=== PATIENT | female | born 1985 | race Caucasian/White ===

== ENCOUNTER 2016-12-22 09:24 | Day surgery (SDC) | payer OTHER ==
[~2016-12-22] VITALS: Ht 172.7 cm; Wt 75.3 kg
[2016-12-22] VITALS (10 sets, daily range): BP systolic 103–125; BP diastolic 69–81; PULSE 75–106; RESP 14–24; O2SAT 98–100
--- NOTE | 2016-12-22 06:48 | PCM.HPANE ---
Patient Data Surgeon Admitting Provider: Attending Provider:Eliel Craven MD Primary Care Physician:Omari Other Provider:Candie Doveingham Anesthesia Reason for Visit Missed Ab Ht/WT & BMI Height (Feet): 5 Height (Inches): 8 Weight (Kilograms): 72.54 Body Mass Index 24.00 Allergies Coded Allergies: Penicillins (Verified Allergy, Unknown, hives, 12/21/16) Past Anesthesia History Anesthesia History: Denies:: Abnormal Airway, Anesthesia Reactions, Difficult Intubation, Fam Anesthesia Reaction Diabetes History Hx Diabetes?: No MRSA MRSA: No Medications Hypertension Medication: No Home Meds Incl Beta Isabel: No Reported Medications Vits #90/Iron Fum/FA ( Formula Tablet)1 Each Tablet1 Each PO DAILY 12/21/16 History HEENT History: Denies:: Abnormal Airway Cataracts Difficult Intubation Dysphagia Glaucoma Hearing Problem Sinus Problem TMJ Cardiovascular History: Denies:: AICD Abdominal Aortic Aneurism Atrial Fibrillation Cardiac Surgery Chest Pain Congestive Heart Failure Coronary Artery Disease Edema Heart Murmur Hypertension Irregular Heartbeat Pacemaker Peripheral Vascular Hx of Respiratory Problem?: No Respiratory History: Denies:: Asthma COPD Emphysema Oxygen Administration Pneumonia Tuberculosis Use of C-PAP Machine Use of Inhalers / NEBS Hx Neurologic Problems?: No Neurological History: Denies:: Alzheimer's Disease CVA Dementia Dizziness Headaches Multiple Sclerosis Parkinson's Disease Seizures TIA Hx of GI Problems?: No Gastrointestinal History: Denies:: Cirrhosis Diverticulitis Gall Bladder Disease Gastroesphageal Reflux Gastrointestinal Bleeding Heartburn Hepatitis Hiatal Hernia Liver Disease Rectal Bleeding Hx of Problems?: No Genitourinary History: Denies:: Kidney Stones Urinary Tract Infection Female Hx: Denies:: Currently (missed ab current admission problem) Problems with Breasts? Skin History: Denies:: History Skin Disorders? Pressure Ulcers Hx Musculoskeletal Problems?: No Musculoskeletal History: Denies:: Back Injury Fibromyalgia Joint Replacement Musculoskeletal Trauma Myasthenia Gravis Osteoarthritis Systemic Lupus Hx of Psycho/Social Problems?: No Psycho Social History: Denies:: Anxiety Hx Depression Hx Surgeries?: Yes (oral surgery, arm re-location) Hx Any Other Health Problems?: Yes Other History: Denies:: Cancer Thyroid Disease History Blood Transfusions: Positive for:: Accept Blood Products? Denies:: Blood Transfusions Hx Diabetes: No Hx Alcohol Use: YesAlcoholic Drinks Per Day: one drink weeklyHx Substance Use : NoHave You Smoked inLast 12 mo: Yes (2 months ) Stop/Bang S-Snoring: Do You Snore Loudly: No T-Tired: feel tired, fatigued: No O-Obsered: Observed not breath: No P-Blood Pressure: treated: No B- Body Mass Index > 35 kg/m2: No A- Age over 50: No N- Neck Large Circumference: No G- Gender Male: No MERON Total Score: 0 MERON Risk Assessment: Low Risk, <3 Yes Risk Assessment Category Category 1A: Patient has history of documented sleep apnea, and HAS NOT received any narcotic, sedative or anesthesia administration during this stay. Category 1B: Patient has history of documented sleep apnea, and HAS received any narcotic , sedative or anesthesia administration during this stay Category 2: Patient has SUSPECTED Obstructive Sleep Apnea, and HAS received any narcotic , sedative or anesthesia administration during this stay. Category 3: Patient has SUSPECTED Obstructive Sleep Apnea and HAS NOT received narcotic, sedative or anesthesia administration during this stay. Category 4: Outpatient in Procedural Areas with known sleep apnea or who screen positive for High Risk via the STOP/BANG questionnaire. Exam Exam General Appearance: Alert, Oriented X3, Cooperative, No Acute Distress HEENT/AIRWAY: MP 2 Lungs: Clear to Auscultation, Normal Air Movement Heart: Exam Unremarkable, Regular Rate/Rhythm, No Murmurs/Rubs/Gallops Plan Impression Patient chart reviewed, patient interviewed and anesthestic plan with risks, benefits, and alternatives discussed, and informed consent obtained. ASA Physical Status: ASA2 Mod Systemic Disease Anesthetic Plan: GA Bene/Risks/Altern/Consents: Yes HP Complete Prior to Induction: Yes Daniel Rice MD Dec 22, 2016 06:48
--- NOTE | 2016-12-22 08:13 | HP PRE OP ---
[address] [address] PREOPERATIVE HISTORY AND PHYSICAL PATIENT: JENIFER ALMANZA : 1985 MR#: [id number] ADMIT: 12/22/2016 JOB ID: [id number] DATE OF ADMISSION: 12/22/2016 IDENTIFICATION: The patient is a 31-year-old, G1, P0, AB 0single woman. CHIEF COMPLAINT: First trimester missed . HISTORY OF PRESENT ILLNESS: This patient came to my office for care. Onset on December 20, 2016. By menstrual dating, she would have been at 9 and 1/7 weeks of gestation. However, ultrasound at that time demonstrated first trimester missed , with pole consistent with 8 and 2/7 weeks of gestation, no heartbeat. Formal ultrasound confirmed the missed . The patient was given options of observation to wait for a spontaneous miscarriage versus suction D and C procedure, understanding benefits and risks, pros and cons, and she definitively requested suction D and C. She has realized that this is considered an outpatient surgery although it could convert to a more major case including laparotomy, if some type of uterine perforation or otherwise heavy bleeding, for example. There can be infection, bleeding, anesthetic risks, cervical or uterine wall perforation, etc. On the other hand, typically this procedure is very brief and patient will return home and we anticipate that she will do well. All questions have been answered. No guarantees have been stated or implied, and the patient has signed informed consent for surgery. In summary, then, this patient will be admitted to [facility] on December 22, 2016 on which day she will undergo a suction D and C procedure. PHYSICAL EXAMINATION: Vital Signs: Height 68 inches, weight 166 pounds. Blood pressure 130/80. Neck: No thyromegaly. Lungs are clear to auscultation and percussion. Heart: Regular in rate and rhythm. Breasts: Tender, no concerning mass or skin changes. Abdomen; Nontender no mass. No surgical scarring. Pelvic examination: Vulva, vagina and cervix, no obvious epithelial abnormality. Uterus small, no obvious adnexal mass or tenderness. IMPRESSION: 1. First trimester missed , with patient request for suction dilation and curettage, scheduled for December 22, 2016. 2. Rhesus positive status. 3. Prior control pill, became while using, note an antibiotic administration recently. 4. Prior smoker, stopped with positive test, not planning to start again. 5. PENICILLIN allergy, reported hives as a baby, no difficulty breathing. (Patient reports that sulfa based antibiotics are well-tolerated). 6. Family history of hypertension (grandparents), diabetes (grandfather), heart disease (grandfather) and twins (maternal grandmother is a twin, paternal aunts are twins). PLAN: The patient will be admitted to [facility] on December 22, 2016 on which day she will undergo suction D and C procedure as therapy for first trimester missed .
[~2016-12-22 09:24] MED LIST: PREN-100 PO
[2016-12-22] MEDS ORDERED: Dexamethasone 4 mg/mL Inj ONE (09:25)
[2016-12-22] MEDS ORDERED: fentaNYL-PF 50 mCg/mL 2 mL Inj ONE (09:25)
[2016-12-22] MEDS ORDERED: Ondansetron 2 mg/mL 2 mL Inj ONE (09:25)
[2016-12-22] MEDS ORDERED: Propofol 10,000 mCg/mL 20 mL Inj ONE (09:25)
[2016-12-22] MEDS ORDERED: Lactated Ringer's 1,000 ML IV SCH ×2 (10:25→12:22)
[2016-12-22] MEDS ORDERED: Lactated Ringer's 1,000 ML IV ONE ×3 (11:13→13:01)
[2016-12-22] MEDS ORDERED: Lactated Ringer's 500 ML IV PRN (12:22)
[2016-12-22] MEDS ORDERED: Labetalol 5 mg/mL 4 mL Inj IV PRN (12:25)
[2016-12-22] MEDS ORDERED: fentaNYL-PF 50 mCg/mL 2 mL Inj IVPUSH PRN (12:25)
[2016-12-22] MEDS ORDERED: Ondansetron 2 mg/mL 2 mL Inj IVPUSH PRN ×2 (12:25→12:55)
[2016-12-22] MEDS ORDERED: Atropine 0.4 mg/mL Inj IVPUSH PRN (12:25)
[2016-12-22] MEDS ORDERED: HYDROmorphone 1 mg/mL Inj IVPUSH PRN ×2 (12:25→12:55)
[2016-12-22] MEDS ORDERED: EPHEDrine Sulfate 50 mg/mL Inj IVPUSH PRN (12:25)
[2016-12-22] MEDS ORDERED: MetoCLOpramide 5 mg/mL 2 mL Inj IVPUSH PRN ×2 (12:25→12:55)
[2016-12-22] MEDS ORDERED: Phenylephrine 10,000 mCg/mL Inj IVPUSH PRN (12:25)
[2016-12-22] MEDS ORDERED: Dexamethasone 4 mg/mL Inj IVPUSH PRN (12:25)
[2016-12-22] MEDS ORDERED: hydrALAZINE 20 mg/mL Inj IVPUSH PRN (12:25)
--- NOTE | 2016-12-22 13:05 | PCM.ANEP1 ---
Post Anesthesia Phase 1 PACU Phase 1 Assessment Vital Signs Vital Signs Date Time Temp Pulse Resp B/P Pulse Ox O2 Delivery O2 Flow Rate FiO2 12/22/16 13:00 100 14 120/79 100 Room Air 12/22/16 12:55 36.6 106 17 124/73 100 Simple Mask 7 12/22/16 09:50 37.0 85 18 124/81 99 Room Air Anesthetic Administered: GA Level of Alertness: Awake, talking CHAIDEZ's with Equal Strength: Yes Pain: No Nausea or Vomiting: No Oxygen Delivery: Simple Mask Lungs: Clear to Auscultation, Normal Air Movement Daniel Rice MD Dec 22, 2016 13:05
[2016-12-22] MEDS ORDERED: HYDROmorphone 0.5 mg/0.5 mL iSecure Syringe ONE (13:09)
--- NOTE | 2016-12-22 15:36 | PCM.ANEP2 ---
Post Anesthesia Evaluation ASA/CMS Post Anesthesia VS in Patient's Normal Range?: Yes Resp Stable; Airway Patent?: Yes CV Function & Hydration Stable: Yes Mental Status Recovered?: Yes Pain control Satisfactory?: Yes N/V Control Satisfactory?: Yes Daniel Rice MD Dec 22, 2016 15:35
--- NOTE | 2016-12-23 00:36 | OP ---
[address] [address] OPERATIVE REPORT PATIENT: JENIFER ALMANZA : 1985 MR#: [id number] ADMIT: 12/22/2016 JOB ID: [id number] DATE OF SURGERY: 12/22/2016 SURGEON: Eliel Craven MD. RECORDS MANAGEMENT TECHNICIAN: None. ANESTHESIA: General. PREOPERATIVE DIAGNOSIS(ES): First trimester missed . POSTOPERATIVE DIAGNOSIS(ES): First trimester missed . PROCEDURES PERFORMED: Suction dilation and curettage. FINDINGS AT SURGERY: Uterus sounded to 11 cm. There was a moderate to large amount of products of conception recovered. At procedure's close, there was minimal bleeding occurring. It certainly is anticipated that patient will do well postoperatively. PROCEDURE IN DETAIL: The patient was placed in supine position on the operating table and general anesthesia was induced. She was then carefully repositioned into the low dorsal lithotomy position and prepped and draped in the usual sterile manner. After appropriate time-out, the weighted speculum was placed posteriorly and a tenaculum on the anterior cervical lip and another on the posterior cervical lip. Cervix was then readily dilated up to 8 mm and a size 8 straight suction curette was selected, and suction curettage accomplished with return of a moderate to large amount of products of conception. Then, gentle sharp curettage was accomplished and no additional tissue was recovered, followed by final suction curettage with return of no additional tissue and only a minimal amount of blood and clots. Intrauterine procedure was thus complete. Each tenaculum was removed from the cervix and pressure was held on tenaculum sites, and then no more bleeding occurred from the cervix, and uterine bleeding was minimal. Instrument and sponge counts were all found to be correct. The patient was returned to supine position, awakened, and taken to recovery room. ESTIMATED BLOOD LOSS: 200 cc. COMPLICATIONS: None. PROGNOSIS: Good for surgical recovery. MTDD
--- NOTE | 2016-12-26 12:21 | PATH ---
SURGICAL PATHOLOGY Attending Physician:Eliel Craven M.D CASE STATUS: Signed Out PATIENT NAME: JENIFER ALMANZA PID: [id number] : 1985 DATE COLLECTED:12/22/2016 22:35 SPECIMEN: Products of conception CLINICAL HISTORY: MISSED 1). PRODUCTS OF CONCEPTION FINAL DIAGNOSIS: 1.UTERINE CONTENTS: IMMATURE CHORIONIC VILLI (PRODUCTS OF CONCEPTION). ICD10 CODE O02.1 GROSS DESCRIPTION: The specimen is received in one formalin filled container labeled with the patient's name, sublabeled "products of conception" and consists of multiple portions of tissue and blood which aggregate to 7.0 x 6.0 x 1.5 CM. No grossly recognizable parts are observed. [employer] sections are submitted in 2 cassettes. 12/22/2016 [facility] MICRO DESCRIPTION: See diagnosis. ICD-9 CODES: CPT CODES: 1: 97235 Electronically Signed Out Terrence Kennedy MD [facility] Pathology [facility] [address], [place] [address] Technical component performed at [facility], [facility] [address], [place], [address]
== END 2016-12-22 23:59 | disposition home or self-care (01) ==
LOC: SAS 09:24
PROVIDERS: ATTEND Obstetrics & Gynecology
PROC: 10D17ZZ Extraction of Products of Conception, Retained, Via Natural or Artificial Opening (ICD-10-PCS; principal; 2016-12-22 11:30)
DX: O02.1 Missed abortion (principal); Z3A.08 8 weeks gestation of pregnancy; Z87.891 Personal history of nicotine dependence
CPT/HCPCS: 59820; J1100; J1170; J2250; J2405; J3010; J7120